=== PATIENT | male | born 1950 | race Caucasian/White ===

== ENCOUNTER 2021-08-17 17:44 | Inpatient (IN) | payer MEDICARE, SELFPAY ==
--- NOTE | ~2021-08-17 | CT_ITS ---
EXAMINATION: CT brain wo con INDICATION: Left-sided weakness COMPARISON: None TECHNIQUE: Standard unenhanced head CT. The dose-length product (DLP) was 605.33 mGy-cm. The mA was a djusted according to patient size. Iterative reconstruction technique was employed. FINDINGS: There is no intracranial hemorrhage, acute infarction, or abnormal mass lesion. The ventric les are normal. There is no abnormal mass effect or midline shift. The harry-white matter differentiat ion is normal. The basal cisterns are patent. The orbits are normal. There is mild mucosal thickening of the paranasal sinuses. IMPRESSION: 1. No acute intracranial abnormality. Reviewed, dictated and finalized at location F. INE ROUGH ROUNDER
--- NOTE | ~2021-08-17 | CT_ITS ---
EXAMINATION: CTA brain carotid DATE: 08/17/2021 19:27 INDICATION: Right-sided weakness TECHNIQUE: Computed tomographic angiography (CTA) of the head was performed without and with 100 mL O mnipaque-350 intravenous contrast. CTA of the neck was performed with intravenous contrast. The dose- length product was 1178.51 mGy-cm. Maximum intensity projection and volume rendered 3D-reconstruction s were created by the technologist on a separate workstation. Automated exposure control and iterativ e reconstruction technique were employed. COMPARISON: None. FINDINGS: HEAD CTA: There is no intracranial hemorrhage, acute infarction, or abnormal mass lesion. The ventric les are normal. There is no abnormal mass effect or midline shift. The harry-white matter differentiat ion is normal. The basal cisterns are patent. The orbits are normal. There is mild mucosal thickening of the paranasal sinuses. There is no significant stenosis of the basilar artery or posterior cerebral arteries. The right vert ebral artery is diminutive. There is no significant stenosis of the intracranial internal carotid art eries or the anterior or middle cerebral arteries. The anterior communicating artery and posterior co mmunicating arteries are normal. There is no aneurysm. NECK CTA: The thyroid gland is unremarkable. The submandibular and parotid glands are symmetric. Ther e is no lymphadenopathy. There are no masses identified. The airway is unremarkable. There is moderat e cervical spondylosis. The superior mediastinum is unremarkable. There is 0% stenosis of the proximal right internal carotid artery relative to normal distal artery l umen diameter (NASCET criteria). There is 0% stenosis of the proximal left internal carotid artery re lative to normal distal artery lumen diameter. IMPRESSION: 1. No acute intracranial abnormality. Normal head CTA. 2. 0% stenosis of the proximal right internal carotid artery relative to normal distal artery lumen d iameter (NASCET criteria). 3. 0% stenosis of the proximal left internal carotid artery relative to normal distal artery lumen di ameter. Reviewed, dictated and finalized at location F. E RESPOOLER IMPRESSION: 1. No acute intracranial abnormality. Normal head CTA. 2. 0% stenosis of the proximal right internal carotid artery relative to normal distal artery lumen diameter (NASCET criteria). 3. 0% stenosis of the proximal left internal carotid artery relative to normal distal artery lumen diameter.
--- NOTE | ~2021-08-17 | MR_ITS ---
EXAMINATION: MR brain/brain stem wo/w con DATE: 08/18/2021 08:03 INDICATION: Cerebral vascular accident. Right hemiparesis. TECHNIQUE: Magnetic resonance imaging (MRI) of the brain and brainstem was performed without and with 20 mL MultiHance intravenous contrast. Sequences included sagittal and axial T1-weighted FSE, axial diffusion-weighted FS EPI, axial T2*-weighted GRE, axial T2-weighted FLAIR Propeller, and axial T2-we ighted Propeller. Postcontrast sequences included axial and coronal T1-weighted FSE. Apparent diffusi on coefficient (ADC) maps were created. COMPARISON: Head CT 08/17/2021 FINDINGS: There is an acute infarct in the gio on the left with involvement of the corticospinal tra cts. There is no intracranial hemorrhage or abnormal mass lesion. There are scattered areas of nonspe cific increased T2-weighted signal intensity in the cerebral white matter. The ventricles are normal in size. The orbits are normal. There is mild mucosal thickening in the paranasal sinuses. The mastoi d air cells are normal. IMPRESSION: 1. Acute infarct in the gio on the left. 2. Mild nonspecific cerebral white matter disease, which likely represents chronic small vessel [place] disease. Reviewed, dictated and finalized at location B. STMENT SALES ASSISTANT IMPRESSION: 1. Acute infarct in the gio on the left. 2. Mild nonspecific cerebral white matter disease, which likely represents steel erector bentley small vessel ischemic disease.
[2021-08-17 17:47] VITALS: BP 165/88; PULSE 74; RESP 16; TEMP 35.8; O2SAT 97
--- NOTE | 2021-08-17 18:08 | ED.GENADULT ---
HPI - General Adult General Chief complaint: Neuro Symptoms/Deficit Stated complaint: SLURRED SPEECH, OFF BALANCE Time Seen by Provider: 08/17/21 17:55 History of Present Illness HPI narrative: 70-year-old male that reports no significant past medical history presents the emergency department for evaluation of right-sided weakness and slurred speech. Patient states his last known normal was last night when he was going to bed. Patient reports his only complaint last night was that he was tired. Patient states when he woke up this morning he did have some slurred speech. Patient states he did have some lightheaded and dizziness. Patient states that he did drive to [employer] today at approximately 1 PM noticed that he was having some right-sided weakness. Patient was unsure how long this has been going on but first noticed it when he was asked to sign some paperwork. Patient does admit to having 1.5 beers today but does not feel that his symptoms are due to his alcohol. Patient denies any prior history of CVA. Patient denies any prior cardiac history. Patient states he is very active for his age. Related Data Home Medications Medication Instructions Recorded Confirmed cholecalciferol (vitamin D3) 625 625 mcg PO WEEKLY 07/21/21 07/21/21 mcg (25,000 unit) capsule coenzyme Q10 400 mg capsule 400 mg PO DAILY 07/21/21 07/21/21 cyanocobalamin (vitamin B-12) 5,000 mcg PO DAILY 07/21/21 07/21/21 5,000 mcg capsule digestive enzymes 1 cap PO DAILY 07/21/21 07/21/21 lactobacillus combination no.9 4 4,000 mmu cells PO DAILY 07/21/21 07/21/21 billion cell capsule uepvbbxnmsea-lku-jwpkh acid-vit 1 tablet PO DAILY 07/21/21 07/21/21 K-lycop 400 mcg-20 mcg-370 mcg tablet Allergies Allergy/AdvReac Type Severity Reaction Status Date / Time shellfish derived Allergy Difficulty Verified 08/17/21 18:48 Swallowing Review of Systems Review of Systems: CONSTITUTIONAL: Denies fever, chills, or sweats. EYES: Denies visual changes, redness, or discharge. ENT: Denies rhinorrhea, congestion, sore throat, or otalgia. CARDIOVASCULAR: Denies chest pain, palpitations, or edema. RESPIRATORY: Denies cough or dyspnea. GASTROINTESTINAL: Denies abdominal pain, nausea, vomiting, or diarrhea. GENITOURINARY: Denies dysuria or hematuria. SKIN: Denies rash or itching. MUSCULOSKELETAL: Denies back pain, joint pain, or myalgia. NEUROLOGIC: Does report slurred speech lightheaded dizziness and right-sided arm and leg weakness PSYCHIATRIC: Denies anxiety or depression. [facility] Surgical History Surgical History (Updated 07/21/20 @ 08:22 by DELFINA Batres) History of cholecystectomy History of hip replacement Hx of inguinal hernia surgery Family History Family History (Updated 07/21/20 @ 08:23 by DELFINA Batres) Mother , Lupus age 55 No problems noted. Father , bone cancer age 62 No problems noted. 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 HEAD: Mild right-sided facial droop EYES: PERRLA/EOMI, conjunctivae clear. NOSE: Normal no drainage EARS:TMS clear with good light reflex. THROAT: Pharynx clear, no exudate. NECK: Supple. No adenopathy, no masses. RESPIRATORY: Airway patent,
[2021-08-17 18:46] LABS: Basophils Percent Auto 0.5 % (0.2-1.2); Eosinophils Absolute Auto 0.2 K/mm3 (0-0.3); Eosinophils Percent Auto 3.4 % (0-4.4); Hematocrit 42.2 % (42.0-52.0); Hemoglobin 14.4 g/dL (14.0-18.0); Immature Granulocyte Absolute 0.01 K/mm3 (0.00-0.031); Immature Granulocyte Percent A 0.2 % (0-0.5); Lymphocytes Absolute Auto 1.12 K/mm3 (0.9-3.2); Lymphocytes Percent Auto 25.6 % (18.3-44.2); Mean Corpuscular HGB Conc 34.1 g/dl (32-36); Mean Corpuscular Hemoglobin 31.9 pg (26-34); Mean Corpuscular Volume 93.4 fl (80-100); Mean Platelet Volume 9.6 fl (7.4-10.4); Monocytes Absolute Auto 0.5 K/mm3 (0.1-0.6); Monocytes Percent Auto 10.8 % (2.6-8.5); Neutrophils Absolute Auto 2.6 K/mm3 (1.3-6.7); Neutrophils Percent Auto 59.5 % (45.5-73.1); Platelet Count Result 206 k/mm3 (150-375); Red Blood Count 4.52 M/mm3 (4.6-6.20); Red Cell Distribution Width 12.3 % (11.5-14.5); White Blood Count 4.4 K/mm3 (4.5-10.0)
[2021-08-17 18:58] LABS: Add Urine Microscopic? NO; Appearance Urine Clear (Clear); Bilirubin Urine Negative (Negative); Blood Urine Negative (Negative); Color Urine Yellow (Yellow); Glucose Urine UA Negative (Negative); Ketones Urine Negative (Negative); Leukocyte Esterase Ur Negative LEU/UL (Negative); Nitrate Urine Negative (Negative); Protein Urine Negative (Negative); Urobilinogen Urine Negative mg/dL (<2.0)
[2021-08-17 19:03] LABS: Ethanol 14 mg/dL (<10)
[2021-08-17 19:05] LABS: Alanine Aminotransferase 37 U/L (4-50); Albumin Level 4.4 g/dL (3.5-5.1); Alkaline Phosphatase 67 U/L (38-126); Anion Gap 14 mmol/L (8-16); Aspartate Amino Transferase 33 U/L (17-59); Bilirubin,Total 0.5 mg/dL (0.2-1.3); Blood Urea Nitrogen 18 mg/dL (9-20); Carbon Dioxide 22 mmol/L (22-30); Chloride 101 mmol/L (98-107); Estimated CRCL calculation 81 ml/min; Estimated Glomerular Filt Rate > 60; Glucose 121 mg/dL (65-110); Potassium 4.1 mmol/L (3.4-5.0); Sodium 137 mmol/L (137-145)
[2021-08-17 19:09] LABS: Amphetamine Screen Urine Negative (Negative); Barbiturate Screen Urine Negative (Negative); Benzodiazepines Screen Urine Negative (Negative); Cannabinoid Screen Urine Negative (Negative); Cocaine Screen Urine Negative (Negative); Methadone Screen Urine Negative (Negative); Opiate Screen Urine Negative (Negative); Phencyclidine Screen Urine Negative (Negative)
[2021-08-17 20:19] VITALS: BP 145/71; PULSE 71; RESP 18; O2SAT 95
[2021-08-17] MEDS: ASPIRIN 81 MG CHEWABLE TABLET 324 MG PO (20:24)
[2021-08-17 21:12] VITALS: BP 136/75; PULSE 77; RESP 18; O2SAT 95
--- NOTE | 2021-08-17 21:26 | ADMGEN ---
This patient, Chris Covarrubias III, was admitted to 2 Medical Room 259-. Patient/family oriented to hospital policies and general routines including ID bracelet, bed and alarms, visiting hours, pain management, procedures, bathroom and other care routines, personal items, smoking policy, room service/diet, and visiting hours. Information on how to activate the Rapid Response Team has been discussed. Patient/Family are encouraged to report perceived risks to care and to ask questions if they do not understand what they are told or what they should do.
[2021-08-17 21:51] VITALS: PULSE 77; RESP 18; O2SAT 95
[2021-08-17 22:30] VITALS: BP 139/74; PULSE 64; RESP 18; TEMP 36.2; O2SAT 96; BMI 32.0
--- NOTE | 2021-08-18 | ECHO_ITS ---
Patient Info Name: Chris Covarrubias Age: 70 years : 1950 Gender: Male Ht: 70 in Wt: 223 lbs BSA: 2.27 m2 HR: 65 bpm BP: 135 / 64 mmHg Heart Rhythm: Sinus Rhythm Technical Quality: Good Exam Date: 08/18/2021 9:55 AM Exam Location: [facility] Pulmonary Exam Room: 259 Patient Status: Inpatient Admit Date: 08/18/2021 Staff Ordering Physician: Toshia Forbes Inspector Outside Steam Distribution: Veronica De La Torre RDCS Attending Provider: Kimo Long MD Referring Physician: Andrei AARON; Exam Type: CA echo doppler color flow Study Info Indications - lightheadedness dizziness rt side weakness slurred speech Complete two-dimensional, color flow and Doppler transthoracic echocardiogram is performed. Summary 1. Complete two-dimensional, color flow and Doppler transthoracic echocardiogram is performed. 2. Normal left ventricular size with mild concentric hypertrophy. Good systolic function of all segments with no segmental wall motion abnormalities. Ejection fraction is 65-70%. Grade 1 diastolic dysfunction is present. 3. Left atrial chamber dimension is mildly enlarged. 4. There is mild mitral valve regurgitation. 5. No pulmonary hypertension, estimated pulmonary arterial systolic pressure is 32 mmHg. 6. Normal sinus rhythm. Left Ventricle Left ventricular chamber dimension is normal. Left ventricular systolic function is normal, estimated at 65-70%. There is mildly increased left ventricular wall thickness. Left ventricular septal wall motion is normal. The left ventricular diastolic function is grade I diastolic dysfunction. Right Ventricle Right ventricular chamber dimension is normal. Right ventricular systolic function is normal. Left Atria Left atrial chamber dimension is mildly enlarged. Right Atria Right atrial chamber dimension is normal. Aortic Valve The aortic valve is trileaflet. There is no aortic valve sclerosis. There is no aortic valve stenosis. There is trace aortic valve regurgitation. Pulmonic Valve The pulmonic valve is normal. There is no pulmonic valve stenosis. There is no pulmonic regurgitation. Mitral Valve The mitral valve has normal leaflets. There is no mitral valve stenosis. There is mild mitral valve regurgitation. Tricuspid Valve The tricuspid valve leaflets are normal. There is no significant tricuspid valve stenosis. There is trace tricuspid valve regurgitation. No pulmonary hypertension, estimated pulmonary arterial systolic pressure is 32 mmHg. Pericardium/Pleural The pericardium appears normal. There is no pericardial effusion. Inferior Vena Cava Normal inferior vena cava with >50% collapse upon inspiration consistent with Empty right atrial pressure, 10 mmHg. Aorta The aortic root size at the sinus of Valsalva is normal. The prox ascending aorta size is normal. Left Ventricular Outflow Tract Name Value Normal LVOT 2D LVOT Diameter 2.0 cm LVOT Doppler LVOT Peak Gradient 7 mmHg LVOT Mean Gradient 3 mmHg LVOT VTI 25 cm
[2021-08-18 06:00] VITALS: BP 135/64; PULSE 54; RESP 21; TEMP 36.1; O2SAT 100
--- NOTE | 2021-08-18 09:08 | PM.IMHP ---
H&P: HPI History of Present Illness Date/Time: 08/18/21 09:08 Chief Complaint: slurred speech; right sided weakness Narrative: Chris Covarrubais a 70 year old man with history tobacco abuse has been admitted after presenting to the ED with complaints of slurred speech and right sided weakness since yesterday morning. He tells me that when he woke up yesterday morning prior to traveling to [place] he noticed he was slurring some words. His also notice while he was on the phone. He then drove to [place] yesterday afternoon, and he stopped to get some gas and noticed some lightheadedness and dizziness. 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 He also noticed some weakness in his right leg. He denies any family history of CVA. He denies any PARKER, fever, chills, recent sick contacts, SOB, CP, palpitations, N/V/D. ED evaluation included: CT of head which showed no acute abnormalities. CTA of head and neck showed no acute abnormalities or stenosis. Stroke scale was 2. CBC and CMP were unremarkable. He was given a full dose of ASA. MRI has been ordered and neurology was consulted. He has been admitted to observation for further evaluation and treatment. Review of Systems Review of Systems: All systems reviewed & are unremarkable except as noted in HPI and below PMFSH Surgical History Surgical History History of cholecystectomy History of hip replacement Hx of inguinal hernia surgery Family History Family History Mother , Lupus age 55 No problems noted. Father , bone cancer age 62 No problems noted. 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 Gender identity (if verbalized by the patient): Male Sexual Orientation (if Verbalized by the Patient): Straight or Heterosexual Spiritual care concerns: No Agree to blood products: Yes Meds Home Medications and Allergies Home Medications Medication Instructions Recorded Confirmed Type tadalafil 20 mg tablet 20 mg PO DAILY PRN #10 tablet 07/21/20 08/17/21 Rx cholecalciferol (vitamin D3) 625 625 mcg PO WEEKLY 07/21/21 08/17/21 History mcg (25,000 unit) capsule coenzyme Q10 400 mg capsule 400 mg PO DAILY 07/21/21 08/17/21 History cyanocobalamin (vitamin B-12) 5,000 mcg PO DAILY 07/21/21 08/17/21 History 5,000 mcg capsule digestive enzymes 1 cap PO DAILY 07/21/21 08/17/21 History lactobacillus combination no.9 4 4,000 mmu cells PO DAILY 07/21/21 08/17/21 History billion cell capsule jropabrueble-eip-tlccx acid-vit 1 tablet PO DAILY 07/21/21 08/17/21 History K-lycop 400 mcg-20 mcg-370 mcg tablet B-Complex W/Vitamin B-12 1 cap PO DAILY 08/17/21 08/17/21 History Pancreat-Bet DFj-fxl-tebv-pap 1 cap PO DAILY 08/17/21 08/17/21 History bacillus coagulans-inulin 1 cap PO DAILY 08/17/21 08/17/21 History [Probiotic with Prebiotic] magnesium 250 mcg PO DAILY 08/17/21 08/17/21 History pepsin-betaine 250 cap PO DAILY 08/17/21 08/17/21 History Allergies Allergy/AdvReac Type Severity Reaction Status Date / Time shellfish derived Allergy Difficulty Verified 08/17/21 21:23 Swallowing Vital Signs Vital Signs - 24 hr 08/17/21 17:47 08/17/21 20:19 08/17/21 21:12 Temperature 35.8 C L Pulse Rate 74 71 77 Respir
[2021-08-18] MEDS: ASPIRIN 81 MG ENTERIC TABLET PO (09:16)
--- NOTE | 2021-08-18 09:53 | PCOTNOTE ---
Attempted to see pt. for occupational therapy. Pt. in room receiving test.
[2021-08-18 10:12] LABS: Cholesterol 217 mg/dL (0-200); HDL Direct 44 mg/dL; Triglycerides 155 mg/dL (<150)
[2021-08-18 10:23] LABS: LDL Cholesterol Direct 142 mg/dL
[2021-08-18] MEDS: ENOXAPARIN 40 MG/0.4 ML SYRINGE SUB-Q (10:27)
--- NOTE | 2021-08-18 11:52 | PCSTNOTE ---
Please refer to the Bedside Swallow Evaluation in the EMR. No concerns were noted and patient may continue regular diet, level 7 with thin liquids. Please note, silent aspiration cannot be ruled out at bedside.
--- NOTE | 2021-08-18 12:14 | WPDNEURCNPN ---
Assessment and Plan Additional Plan 1. 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 Lipid abnormalities 3. 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 along with the weakness in right lower extremity, he does have ongoing history of hip replacement and in [place] hernia repair in addition being former smoker and smoking pack years of 3 and also current alcohol intake 4 drinks per week, initial evaluation in the emergency room included a CT scan of the head, and CTA both the studies were negative but MRI of the brain documented acute infarct in the gio on the left side lipid panel is pending and so as the echocardiogram routine blood studies are normal except triglycerides of 155 cholesterol of 217 with LDL of 118 and LDL cholesterol direct 142 but HDL 44 and toxicology was negative Review of Systems Review of Systems: All systems reviewed & are unremarkable except as noted in HPI and below PMFSH Surgical History Surgical History History of cholecystectomy History of hip replacement Hx of inguinal hernia surgery Family History Family History Mother , Lupus age 55 No problems noted. Father , bone cancer age 62 No problems noted. 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 Gender identity (if verbalized by the patient): Male Sexual Orientation (if Verbalized by the Patient): Straight or Heterosexual Spiritual care concerns: No Agree to blood products: Yes Meds Home Medications and Allergies Home Medications Medication Instructions Recorded Confirmed Type tadalafil 20 mg tablet 20 mg PO DAILY PRN #10 tablet 07/21/20 08/17/21 Rx cholecalciferol (vitamin D3) 625 625 mcg PO WEEKLY 07/21/21 08/17/21 History mcg (25,000 unit) capsule coenzyme Q10 400 mg capsule 400 mg PO DAILY 07/21/21 08/17/21 History cyanocobalamin (vitamin B-12) 5,000 mcg PO DAILY 07/21/21 08/17/21 History 5,000 mcg capsule digestive enzymes 1 cap PO DAILY 07/21/21 08/17/21 History lactobacillus combination no.9 4 4,000 mmu cells PO DAILY 07/21/21 08/17/21 History billion cell capsule kjkpfzfanojr-tsl-xqftf acid-vit 1 tablet PO DAILY 07/21/21 08/17/21 History K-lycop 400 mcg-20 mcg-370 mcg tablet B-Complex W/Vitamin B-12 1 cap PO DAILY 08/17/21 08/17/21 History Pancreat-Bet WZw-utm-tquj-pap 1 cap PO DAILY 08/17/21 08/17/21 History bacillus coagulans-inulin 1 cap PO DAILY 08/17/21 08/17/21 History [Probiotic with Prebiotic] magnesium 250 mcg PO DAILY 08/17/21 08/17/21 History pepsin-betaine 250 cap PO DAILY 08/17/21 08/17/21 History Allergies Allergy/AdvReac Type Severity Reaction Status Date / Time shellfish derived Allergy Difficulty Verified 08/17/21 21:23 Swallowing Vital Signs Vital Signs - 24 hr
[2021-08-18 13:24] VITALS: O2SAT 97
[2021-08-18 14:00] VITALS: BP 139/76; PULSE 55; RESP 18; TEMP 36.3; O2SAT 96
[2021-08-18 20:00] VITALS: PULSE 70; RESP 20; O2SAT 98
[2021-08-18 22:00] VITALS: BP 153/75; PULSE 70; RESP 20; TEMP 36.1; O2SAT 98
[2021-08-19 06:00] VITALS: BP 145/75; PULSE 56; RESP 18; TEMP 36.2; O2SAT 97
[2021-08-19 06:05] LABS: Basophils Percent Auto 0.4 % (0.2-1.2); Eosinophils Absolute Auto 0.2 K/mm3 (0-0.3); Eosinophils Percent Auto 4.7 % (0-4.4); Hematocrit 42.1 % (42.0-52.0); Hemoglobin 14.4 g/dL (14.0-18.0); Immature Granulocyte Absolute 0.01 K/mm3 (0.00-0.031); Immature Granulocyte Percent A 0.2 % (0-0.5); Lymphocytes Absolute Auto 1.23 K/mm3 (0.9-3.2); Lymphocytes Percent Auto 27.6 % (18.3-44.2); Mean Corpuscular HGB Conc 34.2 g/dl (32-36); Mean Corpuscular Hemoglobin 31.2 pg (26-34); Mean Corpuscular Volume 91.1 fl (80-100); Mean Platelet Volume 9.9 fl (7.4-10.4); Monocytes Absolute Auto 0.4 K/mm3 (0.1-0.6); Monocytes Percent Auto 9.6 % (2.6-8.5); Neutrophils Absolute Auto 2.6 K/mm3 (1.3-6.7); Neutrophils Percent Auto 57.5 % (45.5-73.1); Platelet Count Result 206 k/mm3 (150-375); Red Blood Count 4.62 M/mm3 (4.6-6.20); Red Cell Distribution Width 12.2 % (11.5-14.5); White Blood Count 4.5 K/mm3 (4.5-10.0)
[2021-08-19 06:14] LABS: Anion Gap 8 mmol/L (8-16); Blood Urea Nitrogen 15 mg/dL (9-20); Carbon Dioxide 27 mmol/L (22-30); Chloride 102 mmol/L (98-107); Estimated CRCL calculation 74 ml/min; Estimated Glomerular Filt Rate > 60; Glucose 108 mg/dL (65-110); Sodium 137 mmol/L (137-145)
[2021-08-19] MEDS: ATORVASTATIN 20 MG TABLET PO (09:24)
[2021-08-19] MEDS: ASPIRIN 81 MG ENTERIC TABLET PO (09:24)
[2021-08-19] MEDS: ENOXAPARIN 40 MG/0.4 ML SYRINGE SUB-Q (09:24)
--- NOTE | 2021-08-19 12:31 | WPDNEUROPN ---
Progress Note: A&P Additional Plan stable / continue the treatment as such / discussed with the patient appears somewhat apprehensive and said Subjective Date/time seen: 08/19/21 12:31 70 years old right-handed male admitted to the hospital with the diagnosis of acute left pontine stroke with right-sided neurological deficit in addition to comorbid conditions of lipid abnormalities has been already started on aspirin echocardiogram has been done revealed no significant abnormalities to consider anticoagulation therapy patient will benefit from the continuation of physical therapy and ongoing treatment Review of Systems Review of Systems: All systems reviewed & are unremarkable except as noted in HPI and below Exam Const: General: cooperative, healthy appearing, comfortable and no acute distress Nutritional Appearance: average body habitus and well nourished Orientation/consciousness: oriented to person, oriented to place and oriented to time Limitations: physical limitations HENMT: Head: normal to inspection and normocephalic Ears: hearing grossly normal bilaterally General nose exam: Normal external nose present Face and sinus: normal facial exam Mouth: Yes Normal oral and palatal mucosa present Eyes: General: appearance normal, both eyes and all related structures Visual Pak: normal visual pak by confrontation Alignment and Position: alignment normal Periorbital: periorbital findings normal Eyelids: eyelids normal Conjunctivae: conjunctivae normal Sclera: sclerae normal Cornea: corneas normal Pupils: Equal, round and reactive pupils present EOM: EOMs intact bilaterally Neck: Neck: full ROM and no lymphadenopathy Resp: Effort & Inspection: normal respiratory effort and able to speak in complete sentences Cardio: Jugular venous distension: no JVD Rate: regular rate Rhythm: regular rhythm Neuro: General: oriented to person, oriented to place and oriented to time Cranial nerves: Yes Equal, round and reactive pupils present, Yes Bilaterally intact EOM present, Yes Nystagmus not present, Yes Normal facial strength present, Yes Midline tongue present, Yes Normal gag reflex present, Yes Symmetric palate elevation present and Yes Normal hearing present Cognition (Neuro): normal cognition Speech: normal speech Motor exam (neuro): 5/5 motor strength present throughout ( right upper extremity drift), No tremor noted, Motor fasciculations not present and Normal motor muscle tone present throughout Sensory Exam: Sensory deficit (Neuro) Deep tendon reflexes (DTR's): Right triceps reflex intensity grade: 2+, Left triceps reflex intensity grade: 1+, Rt Biceps (C5, C6): 2+, Left biceps reflex intensity grade: 1+, Right brachioradialis reflex intensity grade: 2+, Left brachioradialis reflex intensity grade: 1+, Right patellar reflex intensity grade: 2+, Left patellar reflex intensity grade: 1+, Right ankle reflex intensity grade: 2+ and Left ankle reflex intensity grade: 1+ Plantar Reflex Responses: downgoing: left and upgoing (positive Babinski): right Coordination: [id number] test normal ( on the left) Psych: Appearance: well kempt Mental Status: mental status grossly normal Speech and movement: Normal speech and movement present Affect: Sad affect present Attitude: cooperative Thought process: Normal thought process present Thought content: Yes Normal thought content present Insight: Good insight present (Psych) Judgement: Good judgement present (Psych) Objective Data Vital Signs Vital Signs: Vital Signs - 24 hr 08/18/21 13:24 08/18/21 14:00 08/18/21 20:00 Temperature 36.3 C L Pulse Rate 55 L 70 Respiratory Rate 18 20 Blood Pressure 139/76 Pulse Oximetry 97 96 98 08/18/21 22:00 08/19/21 06:00 Temperature 36.1 C L 36.2 C L Pulse Rate 70 56 L Respiratory Rate 20 18 Blood Pressure 153/75 H 145/75 H Pulse Oximetry 98 97 Intake/Output Intake/Output: Intake & Output 08/16/21 08/17/21 08/18/2108/07
--- NOTE | 2021-08-19 12:44 | PM.DS ---
DS: Admitting Diagnosis Discharge Date 08/19/2021 Admitting Diagnosis Acute CVA, slurred speech, acute right sided stroke DS: Discharge Diagnosis Discharge Diagnosis (1) Acute CVA (cerebrovascular accident): Code(s): I63.9 - Cerebral infarction, unspecified Status: Acute Assessment and Plan: CT of head neg CTA neg MRI-->Acute infarct in the gio on the left. Check ECHO Check lipid panel Consult to neurology PT/OT to eval and treat ST to eval and treat ASA daily Statin initiated (2) Slurred speech: Code(s): R47.81 - Slurred speech Status: Acute Assessment and Plan: Improving Follow-up with neurologist and speech therapist (3) Acute right-sided weakness: Code(s): R53.1 - Weakness Status: Acute Assessment and Plan: Improving Mild deficits noted on neuro exam this morning Follow-up with neurologist and physical therapist/occupational therapist DS: Summary Hospital Course Hospital Course: IV fluids given, CT of the head negative, CTA negative, MRI showing acute CVA. Neurologist, PT, OT ,ST consulted. Aspirin, Plavix, statin started per neurologist recommendations. Patient strength and sensation slowly recovering. Patient discharged and expected to complete outpatient therapies as well as follow-up with primary care provider and neurologist. Time Spent with Patient Time attestation: Total time spent providing and/or coordinating discharge services: Exam Const: General: cooperative, healthy appearing, comfortable, no acute distress, alert and awake Nutritional Appearance: average body habitus, well nourished and overweight Orientation/consciousness: oriented to person, oriented to place, oriented to time and patient oriented x3 Limitations: physical limitations HENMT: Head: normal to inspection, normocephalic and atraumatic Ears: hearing grossly normal bilaterally and external ears normal General nose exam: Normal external nose present Face and sinus: normal facial exam and face symmetric Mouth: Yes Normal oral and palatal mucosa present Eyes: General: appearance normal, both eyes and all related structures Visual Pak: normal visual pak by confrontation Alignment and Position: alignment normal Periorbital: periorbital findings normal Eyelids: eyelids normal Conjunctivae: conjunctivae normal Sclera: sclerae normal Cornea: corneas normal Pupils: Equal, round and reactive pupils present EOM: EOMs intact bilaterally Direct Ophthalmoscopy: normal light reflex Neck: Neck: normal visual inspection, full ROM, no lymphadenopathy, no meningeal signs (slurred speech ), trachea midline and no JVD Resp: Effort & Inspection: normal respiratory effort and able to speak in complete sentences Auscultation: clear to auscultation bilaterally Cardio: Jugular venous distension: no JVD Rate: regular rate Rhythm: regular rhythm Heart sounds: S1 normal heart sound present and S2 normal heart sound present GI: Auscultation: normal bowel sounds : General: Yes no CVA tenderness Back/Spine/Pelvis: Back: no CVA tenderness Skin: General skin exam: normal color and no rashes or lesions noted Rashes: no rashes Neuro: General: oriented to person, oriented to place, oriented to time, patient oriented x3, no meningeal signs (slurred speech ) and no focal motor deficits Cranial nerves: Yes CN's II-XII intact bilaterally, Yes Equal, round and reactive pupils present, Yes Bilaterally intact EOM present, Yes Nystagmus not present, Yes Normal facial strength present, Yes facial symmetry, Yes Midline tongue present, Yes Normal gag reflex present, Yes Symmetric palate elevation present, Yes Normal hearing present, Yes Ability to bilaterally rotate head present and Yes Ability to bilaterally elevate shoulders present Cognition (Neuro): normal cognition Speech: normal speech, Abnormal speech present and Other speech findings present (Neuro) Motor exam (neuro): 5/5 motor strength pres
[2021-08-19 13:17] LABS: Hemoglobin A1C 6.2 % (<5.7)
[2021-08-19 16:10] VITALS: BP 158/86; PULSE 57; RESP 18; TEMP 35.7; O2SAT 96
== END 2021-08-19 17:06 | disposition home or self-care (01) | DRG 65 ==
LOC: ANHED 18:23 → ANH2MED 20:51
PROVIDERS: Nurse Practitioner Adult Health; Admitting Provider Internal Medicine; Emergency Provider Emergency Medicine; PCP Internal Medicine; Visit Provider Nurse Practitioner
DX: I63.9 Cerebral infarction, unspecified (principal); G81.91 Hemiplegia, unspecified affecting right dominant side; R47.81 Slurred speech; R29.702 NIHSS score 2; Z87.891 Personal history of nicotine dependence; Z90.49 Acquired absence of other specified parts of digestive tract; Z96.649 Presence of unspecified artificial hip joint
CPT/HCPCS: 36415; 70450; 70496; 70498; 70553; 80048; 80053; 80061; 80307; 81003; 83036; 85025; 85610; 85730; 92610; 93306; 97161; 97165; 99285; A9270; A9577; G0378; J1650; Q9967

== ENCOUNTER 2021-09-16 13:30 | Outpatient (RCR) | payer MEDICARE, SELFPAY ==
--- NOTE | 2021-08-27 13:14 | PTOPEVAL ---
PHYSICAL THERAPY EVALUATION/ DISCHARGE 08-27-21 Thank you for referring Chris Covarrubias III to [facility], for the diagnosis of s/p cerebral infarct. The evaluation was completed and he is doing well with his LE strength, balance, mobility and gait skills. Duy does not require any additional PT services. He is going to gradually increase his activity level, to return to his prior level of fitness and work activities. He voiced understanding of gradual increase in activity, with monitoring of his fatigue and allow for rest breaks. Please review, sign, date and return this evaluation/discharge report BETY. I agree with and certify that the following plan of care is medically necessary. Referring Physician Date Attending Provider: Kristen Cruz PSYCHOLOGIST CHIEF Document 08/27/21 12:30 LEIGHANN (Rec: 08/27/21 12:57 LEIGHANN [id number]) Past Medical History Source of Past Medical History Recalled from Previous Visit, Confirmed with Patient/Family Neurological History Hx Cerebrovascular Accident (CVA) Yes: 08/17/21 Cardiovascular History Hx Hypercholesterolemia Yes: meds Respiratory History Hx Respiratory Disorders No Significant History Gastrointestinal History Hx Cholecystectomy Yes Hx Hernia Yes: surgical repair Genitourinary History Hx Genitourinary Disorders No Significant History Musculoskeletal History Hx Joint Replacement Yes: R and L THR Endocrine History Hx Endocrine Disorders No Significant History Evaluation Information Problem Diagnosis cerebral infarct Onset August 17, 2021 Subjective Information hospitalized Aug 18 and ; Query Text:As Reported By Patient/ since home from hospital, have Family increased his activity level- -doing home tasks, but not returned to the gym and martial arts yet; dr did not give him any restrictions in activity, to return to activity with increase slowly as tolerated. 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
--- NOTE | 2021-08-27 13:15 | STOPEVAL ---
Thank you for referring Chris Covarrubias III to [facility].? The patient is scheduled to be seen for therapy? 2x/week for 4 weeks. Please review, sign, date and return this plan of care BETY. I agree with and certify that the following plan of care is medically necessary. Referring Physician Date Attending Provider: Kristen Cruz NP Assessment Status Evaluation Outpatient Past Medical History Past Medical History Source of Past Medical History Patient Neurological History Hx Cerebrovascular Accident (CVA) Yes: 08/17/21 Evaluation Information Problem Diagnosis CVA Onset 08/17/21 Subjective Information Patient reports slurred speech Query Text:As Reported By Patient/ and slightly off balance with Family right-handed weakness. He came to [facility], discharged 08/19/21. Reports he had slurred speech, difficulty with swallowing. Reports his speech has improved but seems to be more noticeable when he is more excited and tired. States his sister reports he sounds 100% better, but patient knows his slurred speech is still present. He stated, Right now , I know I'm going to slur but I also know I can be confident when I'm speaking ( in front of people). Patient reports he has a dry mouth, States that his tongue feels wide. Denies difficulty swallowing but then admitted that he has to be mindful when swallowing water. States that episodes of coughing when drinking is very few. Pain Assessment Timing of Pain Assessment Timing of Pain Assessment Assessment Self Report Self Report Pain Level 0 Pain Score Pain Score 0: Self Report Bedside Swallow Evaluation Consistency Thin Uncontrolled 1 Method of Presentation Bottle Behaviors Observed Coughing/Choking Occurrence of Coughing After Vocal Quality After Swallowing Clear Swallow Palpation Results Good Swallow Initiation, Reduced Laryngeal Elevation Tolerance Tolerance For Swallow Slight Distress Alertness Awake/Safe Cooperativeness Calm,Cooperative Attenti
--- NOTE | 2021-08-27 14:07 | OTOPEVAL ---
OCCUPATIONAL THERAPY INITIAL EVALUATION REPORT 08/27/21 Thank you for referring Chris Covarrubias III to [facility].? The patient is scheduled to be seen for therapy? 1x/week for 4 weeks. Please review, sign, date and return this plan of care BETY. I agree with and certify that the following plan of care is medically necessary. Referring Physician Date Referring Provider: Kristen Cruz NP *OT Outpatient Evaluation Start: 08/27/21 12:59 Outpatient Past Medical History Past Medical History Source of Past Medical History Recalled from Previous Visit, Confirmed with Patient/Family Neurological History Hx Cerebrovascular Accident (CVA) Yes: 08/17/21 Cardiovascular History Hx Hypercholesterolemia Yes: meds Respiratory History Hx Respiratory Disorders No Significant History Gastrointestinal History Hx Cholecystectomy Yes Hx Hernia Yes: surgical repair Genitourinary History Hx Genitourinary Disorders No Significant History Musculoskeletal History Hx Joint Replacement Yes: R and L THR Endocrine History Hx Endocrine Disorders No Significant History Evaluation Information Problem Diagnosis cerebral infarct Onset August 17, 2021 Subjective Information Hospitalized Aug 18 and for Query Text:As Reported By Patient/ acute CVA. Was initially Family having difficulties with tying shoes, shaving, and doing toileting tasks. He notes that all of these tasks have returned to being 99-100% normal again. He notes deficits with fine motor tasks . 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
--- NOTE | 2021-09-16 12:32 | PCSTNOTE ---
Patient cancelled on Monday, 09/13 due to being out of town. Resume regular schedule after that.
--- NOTE | 2021-09-16 14:05 | OTOPEVAL ---
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 Patient has made excellent progress in these areas and demonstrates independence with all materials. No further skilled OT indicated at this time. Thank you for referring Chris Covarrubias III to [facility]. Please review, sign, date and return this D/C Note BETY. I agree with and certify that the following plan of care is medically necessary. Referring Physician Date Referring Provider: Kristen Cruz NP *OT Outpatient Re-Evaluation Start: 08/27/21 12:59 Diagnosis CVA Onset August 17, 2021 Subjective Information Chris reports that he feels Query Text:As Reported By Patient/ like he has made excellent Family progress since his CVA. He reports he has no difficulties with typing shoes, using tools, tying shoes, or shaving. 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 Pain Assessment Timing of Pain Assessment Timing of Pain Assessment Assessment Self Report Self Report Pain Level 0 Pain Score Pain Score 0: Self Report Upper Extremity Range of Motion General Upper Extremity Range of Motion Reason Not Measured WNL/Left,WNL/Right Upper Extremity Muscle Strength Testing General Upper Extremity Strength Gross Upper Extremity Strength Comments Bilateral gross UE strength is 5/5 and symmetrical. 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 Patient has made excellent progress in these areas and demonstrates independence with all materials. No further skilled OT indicated at this time. OT Services Indicated No Re
--- NOTE | 2021-09-17 14:22 | STOPEVAL ---
SPEECH THERAPY DISCHARGE SUMMARY Thank you for referring Chris Covarrubias III to [facility].? Please review, sign, date and return this discharge summary. I agree with discharge from Speech Therapy. Referring Physician Date Attending Provider: Kristen Cruz NP Assessment Status Assessment Status Discharge ST Clinical Summary Clinical Summary ST Clinical Summary Discharge Summary This patient has been seen for direct Speech Therapy twice weekly since 08/27/21, with two visits omitted due to severe weather and being out of town for a total of 5 sessions with home exercise program presented both at the time of evaluation with additional tasks throughout each session. Therapy focused on addressing speech sound precision increasing labial/ lingual strength to reduce the amount of slurred speech, or speech sound imprecision when speaking at the word, sentence, and conversational level. Patient was eager to have exercises and stimulus words and sentences directly related to his weakness and consistently completed his home program. By time of discharge, patient performed as follows on goals: * Produce over-articulated mono-/bi-/poly-syllabic words with 95% accuracy: 95% accuracy. Goal achieved. * Produce over-articulated words at the phrase/sentence level with 95% accuracy: 95% accuracy. Goal achieved. *Demonstrate increased symmetry, strength and range of motion of both lips and tongue in order to improve speech sound production: labial and lingual rate, range , and strength were judged to be within normal limits by time of discharge.
== END 2021-10-01 10:56 | disposition home or self-care (01) ==
LOC: ANHOT 13:30
PROVIDERS: PCP Internal Medicine; Visit Provider Nurse Practitioner
DX: I69.331 Monoplegia of upper limb following cerebral infarction affecting right dominant side (principal); I69.318 Other symptoms and signs involving cognitive functions following cerebral infarction
CPT/HCPCS: 92507; 92523; 92526; 92610; 97110; 97161; 97165

== ENCOUNTER → 2023-03-30 14:52 | Outpatient (CLI) | payer OTHER, SELFPAY ==
--- NOTE | ~2023-03-30 | XR_ITS ---
EXAMINATION: XR foot RT 2V DATE: 03/30/2023 15:21 INDICATION: Right foot pain and swelling TECHNIQUE: Dorsoplantar and lateral views of the right foot were obtained. COMPARISON: None. FINDINGS: Mild hallux valgus with bunion and moderate osteoarthritis at the first metatarsophalangeal joint. Al ignment is otherwise normal. No fracture. Additional mild osteoarthritis at a few tarsal metatarsal a nd interphalangeal joints. Large Achilles and plantar calcaneal spurs. Soft tissues are unremarkable. IMPRESSION: 1. Hallux valgus with bunion and moderate osteoarthritis at the first metatarsophalangeal joint. 2. Large Achilles and plantar calcaneal spurs. Reviewed, dictated and finalized at location A. IMPRESSION: 1. Hallux valgus with bunion and moderate osteoarthritis at the first metatarso phalangeal joint. 2. Large Achilles and plantar calcaneal spurs.
== END ==
PROVIDERS: PCP Psychiatry & Neurology Neurology; Visit Provider Nurse Practitioner
DX: M79.671 Pain in right foot (principal); M20.11 Hallux valgus (acquired), right foot; M21.611 Bunion of right foot; M19.041 Primary osteoarthritis, right hand; M77.31 Calcaneal spur, right foot
CPT/HCPCS: 73620